=== PATIENT | male | born 1945 | race Two or more races ===

== ENCOUNTER → 2017-07-02 08:15 | Outpatient (CLI) | payer OTHER ==
[~2017-07-02 08:15] MED LIST: CATAFLAM50 MG PO; COUMADIN6 MG; COUMADIN7.5 MG; PROCARDIA90 MG/BLIS; PROSCAR5 MG; TOPROL XL25 M1; VASOTEC10 MG; [UNRECOGNIZED DRUG - OTHER]
== END | disposition home or self-care (01) ==
LOC: LAB 08:15
DX: D68.8 Other specified coagulation defects (principal); Z51.81 Encounter for therapeutic drug level monitoring

== ENCOUNTER → 2017-08-01 11:32 | Outpatient (CLI) | payer OTHER | END | disposition home or self-care (01) | LOC: LAB 11:32 | DX: D68.8 Other specified coagulation defects (principal); D64.89 Other specified anemias ==

== ENCOUNTER 2017-09-05 07:55 | Outpatient (CLI) | payer OTHER | END 2017-09-05 08:12 | disposition home or self-care (01) | LOC: LAB 07:55 | DX: D68.69 Other thrombophilia (principal); E72.11 Homocystinuria; D51.8 Other vitamin B12 deficiency anemias; D51.3 Other dietary vitamin B12 deficiency anemia; I80.201 Phlebitis and thrombophlebitis of unspecified deep vessels of right lower extremity; I26.99 Other pulmonary embolism without acute cor pulmonale; N40.1 Benign prostatic hyperplasia with lower urinary tract symptoms; I10 Essential (primary) hypertension; E78.2 Mixed hyperlipidemia; D50.8 Other iron deficiency anemias; R19.5 Other fecal abnormalities; D68.8 Other specified coagulation defects; D64.89 Other specified anemias; I73.89 Other specified peripheral vascular diseases ==

== ENCOUNTER 2017-09-05 07:59 | Outpatient (CLI) | payer OTHER | END 2017-09-05 08:13 | disposition home or self-care (01) | LOC: RAD 07:59 | DX: J98.4 Other disorders of lung (principal) ==

== ENCOUNTER 2017-10-03 09:51 | Outpatient (CLI) | payer OTHER | END 2017-10-03 10:02 | disposition home or self-care (01) | LOC: TOM 09:51 | DX: K80.10 Calculus of gallbladder with chronic cholecystitis without obstruction (principal); K80.80 Other cholelithiasis without obstruction; D68.69 Other thrombophilia; E72.11 Homocystinuria; D51.8 Other vitamin B12 deficiency anemias; I80.201 Phlebitis and thrombophlebitis of unspecified deep vessels of right lower extremity; I26.99 Other pulmonary embolism without acute cor pulmonale; I73.89 Other specified peripheral vascular diseases; N40.1 Benign prostatic hyperplasia with lower urinary tract symptoms; D68.8 Other specified coagulation defects; I10 Essential (primary) hypertension; E78.2 Mixed hyperlipidemia; R94.5 Abnormal results of liver function studies; K76.9 Liver disease, unspecified ==

== ENCOUNTER 2017-10-19 09:20 | Outpatient (CLI) | payer OTHER | END 2017-10-19 09:38 | disposition home or self-care (01) | LOC: LAB 09:20 | DX: D68.69 Other thrombophilia (principal); E72.11 Homocystinuria; D51.8 Other vitamin B12 deficiency anemias; D51.3 Other dietary vitamin B12 deficiency anemia; I80.201 Phlebitis and thrombophlebitis of unspecified deep vessels of right lower extremity; I26.99 Other pulmonary embolism without acute cor pulmonale; I73.89 Other specified peripheral vascular diseases; N40.1 Benign prostatic hyperplasia with lower urinary tract symptoms; D68.8 Other specified coagulation defects; I10 Essential (primary) hypertension; E78.2 Mixed hyperlipidemia; R97.0 Elevated carcinoembryonic antigen [CEA]; R97.8 Other abnormal tumor markers; N40.0 Benign prostatic hyperplasia without lower urinary tract symptoms; N39.0 Urinary tract infection, site not specified; C18.9 Malignant neoplasm of colon, unspecified; C61 Malignant neoplasm of prostate; R94.5 Abnormal results of liver function studies; K80.10 Calculus of gallbladder with chronic cholecystitis without obstruction; K87 Disorders of gallbladder, biliary tract and pancreas in diseases classified elsewhere; C25.8 Malignant neoplasm of overlapping sites of pancreas ==

== ENCOUNTER → 2017-11-12 11:05 | Outpatient (CLI) | payer OTHER | END | disposition home or self-care (01) | LOC: LAB 11:05 | DX: D50.8 Other iron deficiency anemias (principal); D51.8 Other vitamin B12 deficiency anemias; D68.8 Other specified coagulation defects; I10 Essential (primary) hypertension; N39.0 Urinary tract infection, site not specified ==

== ENCOUNTER 2018-01-08 06:29 | Outpatient (CLI) | payer OTHER | END 2018-01-08 07:07 | disposition home or self-care (01) | LOC: LAB 06:29 | DX: D68.8 Other specified coagulation defects (principal); E11.65 Type 2 diabetes mellitus with hyperglycemia; N39.0 Urinary tract infection, site not specified; E78.2 Mixed hyperlipidemia; D64.89 Other specified anemias; E03.8 Other specified hypothyroidism ==

== ENCOUNTER 2018-01-23 15:15 | Outpatient (CLI) | payer OTHER | END 2018-01-23 15:16 | disposition home or self-care (01) | LOC: LAB 15:15 | DX: D68.8 Other specified coagulation defects (principal) ==

== ENCOUNTER → 2018-01-24 14:46 | Outpatient (CLI) | payer OTHER | END | disposition home or self-care (01) | LOC: LAB 14:46 | DX: N30.00 Acute cystitis without hematuria (principal); R82.8 Abnormal findings on cytological and histological examination of urine ==

== ENCOUNTER 2018-02-02 08:03 | Outpatient (CLI) | payer OTHER | END 2018-02-02 08:31 | disposition home or self-care (01) | LOC: RAD 08:03 → MAMO-SONO 08:15 → RAD 08:31 | DX: N30.00 Acute cystitis without hematuria (principal); N39.0 Urinary tract infection, site not specified; R33.8 Other retention of urine ==

== ENCOUNTER 2018-02-16 09:19 | Outpatient (CLI) | payer OTHER | END 2018-02-16 09:46 | disposition home or self-care (01) | LOC: LAB 09:19 | DX: D64.89 Other specified anemias (principal); D68.8 Other specified coagulation defects ==

== ENCOUNTER → 2018-04-01 14:05 | Outpatient (CLI) | payer OTHER | END | disposition home or self-care (01) | LOC: LAB 14:05 | DX: I48.2 Chronic atrial fibrillation (principal) ==

== ENCOUNTER → 2018-04-27 07:55 | Outpatient (CLI) | payer OTHER | END | disposition home or self-care (01) | LOC: LAB 07:55 | DX: D68.8 Other specified coagulation defects (principal); N39.0 Urinary tract infection, site not specified; N40.1 Benign prostatic hyperplasia with lower urinary tract symptoms; R82.79 Other abnormal findings on microbiological examination of urine ==

== ENCOUNTER 2018-06-12 15:46 | Outpatient (CLI) | payer OTHER | END 2018-06-12 15:53 | disposition home or self-care (01) | LOC: LAB 15:46 | DX: D68.8 Other specified coagulation defects (principal) ==

== ENCOUNTER 2018-08-05 07:26 | Outpatient (CLI) | payer OTHER | END 2018-08-05 08:10 | disposition home or self-care (01) | LOC: LAB 07:26 | DX: N30.00 Acute cystitis without hematuria (principal); D68.8 Other specified coagulation defects; B96.4 Proteus (mirabilis) (morganii) as the cause of diseases classified elsewhere ==

== ENCOUNTER 2018-08-06 08:07 | Outpatient (CLI) | payer OTHER | END 2018-08-06 08:52 | disposition home or self-care (01) | LOC: TOM 08:07 | DX: K40.31 Unilateral inguinal hernia, with obstruction, without gangrene, recurrent (principal) ==

== ENCOUNTER 2018-11-04 10:21 | Outpatient (CLI) | payer OTHER | END 2018-11-04 10:26 | disposition home or self-care (01) | LOC: LAB 10:21 | DX: D68.8 Other specified coagulation defects (principal) ==

== ENCOUNTER 2018-11-21 06:47 | Outpatient (CLI) | payer OTHER | END 2018-11-21 06:53 | disposition home or self-care (01) | LOC: LAB 06:47 | DX: E11.65 Type 2 diabetes mellitus with hyperglycemia (principal); E03.8 Other specified hypothyroidism; E78.2 Mixed hyperlipidemia ==

== ENCOUNTER 2018-12-09 07:55 | Outpatient (CLI) | payer OTHER ==
[2018-12-09] MEDS ORDERED: COUMADIN4 MG (11:04)
[2018-12-09] MEDS ORDERED: TAMS0.4C (11:05)
[2018-12-09] MEDS ORDERED: CARVEDILOL3.125 MG (11:05)
== END 2018-12-09 08:01 | disposition home or self-care (01) ==
LOC: LAB 07:55
DX: I48.2 Chronic atrial fibrillation (principal)

== ENCOUNTER 2018-12-09 10:10 | Emergency (ER) | payer OTHER ==
[~2018-12-09] VITALS: Ht 188 cm; Wt 81.6 kg
[2018-12-09] MEDS ORDERED: COUMADIN4 MG (11:04)
[2018-12-09] MEDS ORDERED: TAMS0.4C (11:05)
[2018-12-09] MEDS ORDERED: CARVEDILOL3.125 MG (11:05)
== END 2018-12-09 15:55 | disposition home or self-care (01) ==
LOC: ER 10:10
DX: S80.02XA Contusion of left knee, initial encounter (principal); S00.33XA Contusion of nose, initial encounter; S40.012A Contusion of left shoulder, initial encounter; S50.12XA Contusion of left forearm, initial encounter; W18.09XA Striking against other object with subsequent fall, initial encounter; Y93.89 Activity, other specified; Y92.018 Other place in single-family (private) house as the place of occurrence of the external cause; Y99.8 Other external cause status

== ENCOUNTER → 2019-03-12 16:31 | Outpatient (CLI) | payer OTHER ==
[~2019-03-12 16:31] MED LIST changes: +CARVEDILOL3.125 MG; +COUMADIN4 MG; +TAMS0.4C
== END | disposition home or self-care (01) ==
LOC: LAB 16:31
DX: E11.65 Type 2 diabetes mellitus with hyperglycemia (principal); E11.21 Type 2 diabetes mellitus with diabetic nephropathy; N39.0 Urinary tract infection, site not specified

== ENCOUNTER 2019-03-21 07:58 | Outpatient (CLI) | payer OTHER | END 2019-03-21 08:12 | disposition home or self-care (01) | LOC: LAB 07:58 | DX: I10 Essential (primary) hypertension (principal); D68.9 Coagulation defect, unspecified; E78.2 Mixed hyperlipidemia ==

== ENCOUNTER 2019-03-31 09:02 | Outpatient (CLI) | payer OTHER | END 2019-03-31 15:00 | disposition home or self-care (01) | LOC: LAB 09:02 | DX: D68.8 Other specified coagulation defects (principal) ==

== ENCOUNTER 2019-04-26 08:03 | Outpatient (CLI) | payer OTHER | END 2019-04-26 08:09 | disposition home or self-care (01) | LOC: LAB 08:03 | DX: E11.65 Type 2 diabetes mellitus with hyperglycemia (principal); D68.8 Other specified coagulation defects ==

== ENCOUNTER 2019-08-05 08:15 | Outpatient (CLI) | payer OTHER | END 2019-08-05 08:17 | disposition home or self-care (01) | LOC: TOM 08:15 | DX: K40.20 Bilateral inguinal hernia, without obstruction or gangrene, not specified as recurrent (principal) ==

== ENCOUNTER → 2019-08-26 06:57 | Outpatient (CLI) | payer OTHER | END | disposition home or self-care (01) | LOC: LAB 06:57 | DX: E03.8 Other specified hypothyroidism (principal); E78.2 Mixed hyperlipidemia; E11.65 Type 2 diabetes mellitus with hyperglycemia; N40.1 Benign prostatic hyperplasia with lower urinary tract symptoms; N39.0 Urinary tract infection, site not specified; D68.8 Other specified coagulation defects ==

== ENCOUNTER → 2019-11-22 07:44 | Outpatient (CLI) | payer OTHER | END | disposition home or self-care (01) | LOC: LAB 07:44 | PROVIDERS: ATTEND Urology | DX: N30.00 Acute cystitis without hematuria (principal) ==

== ENCOUNTER 2020-01-13 08:25 | Outpatient (CLI) | payer OTHER | END 2020-01-13 08:37 | disposition home or self-care (01) | LOC: LAB 08:25 | PROVIDERS: ATTEND Internal Medicine Cardiovascular Disease | DX: D68.8 Other specified coagulation defects (principal); I11.9 Hypertensive heart disease without heart failure; E78.00 Pure hypercholesterolemia, unspecified ==

== ENCOUNTER → 2020-04-17 07:23 | Outpatient (CLI) | payer OTHER | END | disposition home or self-care (01) | LOC: LAB 07:23 | PROVIDERS: ATTEND Specialist | DX: N39.0 Urinary tract infection, site not specified (principal) ==

== ENCOUNTER 2020-07-03 07:29 | Outpatient (CLI) | payer OTHER | END 2020-07-03 07:33 | disposition home or self-care (01) | LOC: LAB 07:29 | PROVIDERS: ATTEND Urology | DX: N30.00 Acute cystitis without hematuria (principal) ==

== ENCOUNTER 2020-07-13 07:58 | Outpatient (CLI) | payer OTHER | END 2020-07-13 08:15 | disposition home or self-care (01) | LOC: SONOGRAMA 07:58 | PROVIDERS: ATTEND Urology | DX: Q61.02 Congenital multiple renal cysts (principal); N40.0 Benign prostatic hyperplasia without lower urinary tract symptoms; N20.0 Calculus of kidney ==

== ENCOUNTER 2020-07-29 14:40 | Inpatient (IN) | payer OTHER ==
[~2020-07-29] VITALS: Ht 188 cm; Wt 70.8 kg
[2020-07-29] MEDS ORDERED: CARVEDILOL6.25 M1 PO (14:47)
[2020-07-29] MEDS ORDERED: WARFARIN SODIUM5 MG PO (14:47)
[2020-07-29] MEDS ORDERED: WARFARIN SODIUM4 MG PO (14:47)
[2020-07-29] MEDS ORDERED: FINASTERIDE5 MG PO (14:48)
== END 2020-08-06 15:50 | disposition home or self-care (01) | DRG 446 ==
LOC: ER 14:40 → MEDI 07-30 14:19
PROVIDERS: ADMIT Specialist; ATTEND Specialist
PROC: BW40ZZZ Ultrasonography of Abdomen (ICD-10-PCS; principal; 2020-07-29)
PROC: BW21ZZZ Computerized Tomography (CT Scan) of Abdomen and Pelvis (ICD-10-PCS; 2020-07-29)
DX: K80.00 Calculus of gallbladder with acute cholecystitis without obstruction (principal); I11.9 Hypertensive heart disease without heart failure; Z95.0 Presence of cardiac pacemaker; N20.0 Calculus of kidney

== ENCOUNTER → 2020-08-10 08:37 | Outpatient (CLI) | payer OTHER ==
[~2020-08-10 08:37] MED LIST changes: +CARVEDILOL6.25 M1 PO; +FINASTERIDE5 MG PO; +WARFARIN SODIUM4 MG PO; +WARFARIN SODIUM5 MG PO
== END | disposition home or self-care (01) ==
LOC: LAB 08:37
PROVIDERS: ATTEND Specialist
DX: D68.8 Other specified coagulation defects (principal); D64.89 Other specified anemias

== ENCOUNTER 2022-12-20 06:49 | Inpatient (IN) | payer OTHER ==
[~2022-12-20] VITALS: Ht 180.3 cm; Wt 72.6 kg
--- NOTE | 2022-12-20 07:20 | NUR ---
PACIENTE ALERTA Y ORIENTDA X 3 REFIERE DOLOR DE GARGANTA, CATARRO Y OIDO DERECHO TAPADO.
--- NOTE | 2022-12-20 09:30 | NUR ---
PTE EVALUADO POR DR ISAMAR RAYMOND [place] [facility]. SE EDUCA A PTE SOBRE EL MISMO Y REFIERE ENTENDER. SE COLECTAN MUESTRAS DE IRINA BAJO MEDIDAS ASEPTICAS Y SE ENVIAN A LABORATORIO. SE ADMINISTRAN MEDICAMENTOS YOU ORDEN MEDICA. SE NOTIFICA X-RAY
--- NOTE | 2022-12-20 15:23 | NUR ---
SE RECIBE PTE ALERTA Y ORIENTADO X3. EN CAMA BAJA CON BARANDAS ELEVADAS POR SEGURIDAD. SE OBSERVA CON BUEN PATRON RESPIRATORIO. CANALIZADO EN LA #22, PATENTE, MAGALIE DE EDEMA Y ERITEMA, RECIBIENDO IV FLUIDS. PEND CONSULTA CON DR. HAZEL. PEND U/A Y U/C
== END 2022-12-28 20:20 | disposition home or self-care (01) | DRG 194 ==
LOC: ER 06:49 → SEC-K 17:43 → MEDJ 17:43
PROVIDERS: ADMIT Specialist; ATTEND Specialist
PROC: BB24ZZZ Computerized Tomography (CT Scan) of Bilateral Lungs (ICD-10-PCS; principal; 2022-12-20)
PROC: 3E0F7GC Introduction of Other Therapeutic Substance into Respiratory Tract, Via Natural or Artificial Opening (ICD-10-PCS; 2022-12-20)
PROC: 4A12X4Z Monitoring of Cardiac Electrical Activity, External Approach (ICD-10-PCS; 2022-12-20)
PROC: 02HV33Z Insertion of Infusion Device into Superior Vena Cava, Percutaneous Approach (ICD-10-PCS; 2022-12-21)
PROC: BB24ZZZ Computerized Tomography (CT Scan) of Bilateral Lungs (ICD-10-PCS; 2022-12-27)
DX: J18.9 Pneumonia, unspecified organism (principal); D68.62 Lupus anticoagulant syndrome; N39.0 Urinary tract infection, site not specified; I48.91 Unspecified atrial fibrillation; Z95.0 Presence of cardiac pacemaker; I10 Essential (primary) hypertension; B96.89 Other specified bacterial agents as the cause of diseases classified elsewhere